=== PATIENT | female | born 1980 | race Caucasian/White ===

== ENCOUNTER → 2017-01-08 | Outpatient (CLI) | payer BC ==
[~2017-01-08] MED LIST: BIOF500T PO; BUSP15TA70 PO; CEFU1TAB36 PO; FEXO1TAB46 PO; METH1TAB66 PO; MONT1TAB5 PO; OMEP20TA PO; ONDA4TAB7 SL; PRAM0.5T10 PO; RANI300T PO; RIZA10TA19 PO; VENL150T33 PO; [UNRECOGNIZED DRUG - OTHER] PO
[2017-01-08 12:35] LABS: ALT/SGPT 35 U/L (12-78); BLOOD UREA NITROGEN 12 mg/dl (7-18); BUN/CREATININE RATIO 12.9 (10-20); CARBON DIOXIDE 24 mmol/L (21-32); CHLORIDE 110 mmol/L (98-107); CHOLESTEROL 149 mg/dl (0-200); CREATININE 0.91 mg/dl (0.60-1.20); GLUCOSE 94 mg/dl (70-99); SODIUM 141 mmol/L (136-145); TRIGLYCERIDES 139 mg/dl (0-150); VERY LOW DENSITY LIPOPROT CALC 28 mg/dl
[2017-01-08 12:38] LABS: ALB/GLOB RATIO 1.3 (0.9-2); ALKALINE PHOSPHATASE 77 U/L (45-117); AST/SGOT 23 U/L (15-37); CHOLESTEROL/HDL RATIO 3.2; HDL CHOLESTEROL 46 mg/dl; LDL CHOLESTEROL CALCULATED 75 mg/dl
[2017-01-08 12:39] LABS: CALCIUM 9.9 mg/dl (8.5-10.1)
== END | disposition home or self-care (01) ==
LOC: C.LABPVFM 09:28
PROVIDERS: ATTEND Nurse Practitioner
DX: G43.909 Migraine, unspecified, not intractable, without status migrainosus (principal); E55.9 Vitamin D deficiency, unspecified; Z13.220 Encounter for screening for lipoid disorders

== ENCOUNTER 2017-09-04 12:06 | Emergency (ER) | payer BC ==
[~2017-09-04] VITALS: Ht 160 cm; Wt 116.6 kg
[2017-09-04 12:08] VITALS: TEMP 36.7; Ht 160 cm; Wt 116.6 kg
[2017-09-04] MEDS ORDERED: KETOROLAC TROMETHAMINE 30 MG/ML VIAL IV STA (12:20)
[2017-09-04] MEDS ORDERED: SODIUM CHLORIDE 0.9% 1000ML 1,000 ML IV STA (12:20)
[2017-09-04] MEDS ORDERED: ONDANSETRON INJ 2 MG/ML 2 ML VIAL IV STA (12:20)
[2017-09-04] MEDS ORDERED: OPTIRAY 320 IV PRN (12:30)
[2017-09-04 12:58] LABS: BASO % 0.2 %; BASO ABS # 0.02 K/uL (0-0.2); COMPLETE YES; EOS % 0.3 %; HEMATOCRIT 40.4 % (37-47); IG% 0.2 %; LYMPH % 14.6 %; LYMPH ABS # 1.42 K/uL (1.2-3.4); MEAN CELL VOLUME 89.2 fL (80-100); MEAN CORPUSCULAR HEMOGLOBIN 31.1 pg (25-34); MEAN CORPUSCULAR HGB CONC 34.9 g/dl (32-36); MEAN PLATELET VOLUME 9.3 fL (7.4-10.4); MONO % 6.3 %; NEUT % 78.4 %; PLATELET COUNT 294 K/uL (130-400); RED BLOOD COUNT 4.53 M/uL (4.2-5.4); WHITE BLOOD COUNT 9.75 K/uL (4.8-10.8)
[2017-09-04 13:00] LABS: URINE APPEARANCE CLEAR (CLEAR); URINE BILIRUBIN NEG (NEG); URINE COLOR YELLOW; URINE NITRITE NEG (NEG); URINE PH 7.5 (4.5-7.5); URINE SPECIFIC GRAVITY 1.007 (1.000-1.030); UROBILINOGEN NEG (NEG); ZZUR CULT IF INDIC CLEAN CATCH NO
[2017-09-04 13:01] LABS: MANUAL MICROSCOPIC REQUIRED? NO; REVIEW REQ? NO
[2017-09-04 13:18] LABS: ALT/SGPT 22 U/L (12-78); AST/SGOT 17 U/L (15-37); BLOOD UREA NITROGEN 7 mg/dl (7-18); BUN/CREATININE RATIO 9.5 (10-20); CALCIUM 9.3 mg/dl (8.5-10.1); CARBON DIOXIDE 25 mmol/L (21-32); CHLORIDE 108 mmol/L (98-107); CREATININE 0.74 mg/dl (0.60-1.20); GLUCOSE 93 mg/dl (70-99); POTASSIUM 3.6 mmol/L (3.5-5.1); SODIUM 140 mmol/L (136-145)
[2017-09-04 13:20] LABS: ALKALINE PHOSPHATASE 72 U/L (45-117)
--- NOTE | 2017-09-04 14:10 | DIAGNOSTIC IMAGING REPORT ---
ABDOMEN AND PELVIS CT WITH IV CONTRAST CT DOSE: 1484.65 mGy.cm HISTORY: Left-sided abdominal pain. TECHNIQUE: Multiaxial CT images of the abdomen and pelvis were performed following the use of intravenous contrast. A dose lowering technique was utilized adhering to the principles of ALARA. COMPARISON STUDY: None. FINDINGS: The lung bases are clear. The liver, spleen, gallbladder, pancreas, kidneys, and adrenal glands are within normal limits. No bowel wall thickening or obstruction. The pelvic organs are unremarkable. No suspicious lytic or blastic osseous lesions. Normal appendix. The intrauterine device is in good position. Incidental note is made of a left retroaortic renal vein. IMPRESSION: 1. No bowel wall thickening or obstruction. 2. Normal appendix. 3. No renal stones. No hydronephrosis. Electronically signed by: Sreedhar Gutierrez M.D. 09/04/2017 2:09 PM Dictated Date/Time: 09/04/2017 1:59 PM
[2017-09-04 14:47] VITALS: BP 119/71; PULSE 83; O2SAT 96
--- NOTE | 2017-09-04 17:10 | EMERGENCY ROOM VISIT NOTE ---
History Report prepared by Leopoldo: Luke Marti Under the Supervision of: Dr. Kraig Asher D.O. First contact with patient: 12:15 Chief Complaint: OTHER COMPLAINT Stated Complaint: PAIN IN RIFHT SIDE/NAUSEA/LEG PAIN History of Present Illness The patient is a 37 year old female who presents to the Emergency Room with complaints of constant pain on left abdominal pain beginning a few weeks ago. Her pain was initially intermittent, but became constant one week ago. Patient adds both legs were achy last night. She denies any numbness or weakness. Patient says she has associated symptoms of nausea for 3 weeks which started off intermittent but has been constant for the last week similarly to her pain. Patient admits throwing up last night as well as 4 days ago. She admits to a history of headaches. In addition, she has had a severe headache that began recently. She denies symptoms of shortness of breath, chest pain, and painful urination. Patient had an X-Ray done today at her doctor's office this morning that showed she was not constipated. Patient is currently on antibiotics for a sinus infection. Patient denies any previous abdominal surgeries. Patient has an IUD in place. No vaginal bleeding or vaginal discharge. Source of History: patient Onset: a few weeks ago Position: abdomen (left) Timing: constant Associated Symptoms: + headache, + nausea, + urinary symptoms (Painful urination), No chest pain, No SOB Note: Patient denies being constipated. She also complains of leg aching. Review of Systems See HPI for pertinent positives & negatives. A total of 10 systems reviewed and were otherwise negative. Past Medical & Surgical Medical Problems: (1) Depression (2) Gastroesophageal reflux disease (3) Migraines (4) Orthopedic surgery (5) Sinus surgery Family History Diabetes mellitus Hypertension Social History Smoking Status: Never Smoker Alcohol Use: none Marital Status: Occupation Status: employed Current/Historical Medications Scheduled Montelukast Sodium (Montelukast Sodium), 10 MG PO HS Omeprazole (Omeprazole), 20 MG PO BID Pramipexole Dihydrochloride (Pramipexole Dihydrochlori), 0.5 MG PO HS Ranitidine Hcl (Zantac), 300 MG PO HS Rizatriptan Benzoate (Maxalt-Entertainment Agent), 10 MG PO PRN/UD Venlafaxine Hcl (Venlafaxine Hcl Er), 150 MG PO QAM Allergies Coded Allergies: No Known Allergies (Verified , 07/07/11) Physical Exam Vital Signs Date Time Temp Pulse Resp B/P (MAP) Pulse Ox O2 Delivery O2 Flow Rate FiO2 09/04/17 14:47 83 18 119/71 96 Room Air 09/04/17 13:51 90 19 122/81 97 Room Air 09/04/17 12:08 36.7 104 18 131/87 95 Room Air Physical Exam GENERAL: Sitting up in bed, alert, well appearing, well nourished, no distress, non-toxic EYE EXAM: normal conjunctiva. OROPHARYNX: no exudate, no erythema, lips, buccal mucosa, and tongue normal and mucous membranes are moist NECK: supple, no nuchal rigidity, no adenopathy, non-tender LUNGS: Clear to auscultation. Normal chest wall mechanics HEART: no murmurs, S1 normal and S2 normal ABDOMEN: abdomen soft, minimal tenderness in left flank, normo-active bowel sounds, no masses, no rebound or guarding. BACK: Back is symmetrical on inspection and there is no deformity, no midline tenderness, no CVA tenderness. SKIN: no rashes and no bruising UPPER EXTREMITIES: upper extremities are grossly normal. LOWER EXTREMITIES: No pitting edema. NEURO EXAM: Normal sensorium, cranial nerves II-XII grossly intact, normal speech, no gross weakness of arms. Able to stand and walk on heels and toes. Gross sensation intact. No weakness in hip, knees, or ankles. Medical Decision & Procedures ER Provider Diagnostic Interpretation: Radiology results as stated below per my review and the radiologist's interpretation: ABDOMEN AND PELVIS CT WITH IV CONTRAST CT DOSE: 1484.65 mGy.cm HISTORY: Left-sided abdominal pain. TECHNIQUE: Multiaxial CT images of the abdomen and pelvis were performed following the use of intravenous contrast. A dose lowering technique was utilized adhering to the principles of ALARA. COMPARISON STUDY: None. FINDINGS: The lung bases are clear. The liver, spleen, gallbladder, pancreas, kidneys, and adrenal glands are within normal limits. No bowel wall thickening or obstruction. The pelvic organs are unremarkable. No suspicious lytic or blastic osseous lesions. Normal appendix. The intrauterine device is in good position. Incidental note is made of a left retroaortic renal vein. IMPRESSION: 1. No bowel wall thickening or obstruction. 2. Normal appendix. 3. No renal stones. No hydronephrosis. Electronically signed by: Sreedhar Gutierrez M.D. 09/04/2017 2:09 PM Laboratory Results 09/04/17 12:30 Red Blood Count 4.53, Mean Corpuscular Volume 89.2, Mean Corpuscular Hemoglobin 31.1, Mean Corpuscular Hemoglobin Concent 34.9, Mean Platelet Volume 9.3, Neutrophils (%) (Auto) 78.4, Lymphocytes (%) (Auto) 14.6, Monocytes (%) (Auto) 6.3, Eosinophils (%) (Auto) 0.3, Basophils (%) (Auto) 0.2, Neutrophils # (Auto) 7.65, Lymphocytes # (Auto) 1.42, Monocytes # (Auto) 0.61, Eosinophils # (Auto) 0.03, Basophils # (Auto) 0.02 09/04/17 12:30 Test 09/04/17 12:25 09/04/17 12:30 Urine Color YELLOW Urine Appearance CLEAR (CLEAR) Urine pH 7.5 (4.5-7.5) Urine Specific [place] 1.007 (1.000-1.030) Urine Protein NEG (NEG) Urine Glucose (UA) NEG (NEG) Urine Ketones NEG (NEG) Urine Occult Blood NEG (NEG) Urine Nitrite NEG (NEG) Urine Bilirubin NEG (NEG) Urine Urobilinogen NEG (NEG) Urine Leukocyte Esterase NEG (NEG) Urine WBC (Auto) 0 /hpf (0-5) Urine RBC (Auto) 0-4 /hpf (0-4) Urine Hyaline Casts (Auto) 1-5 /lpf (0-5) Urine Epithelial Cells (Auto) 10-20 /lpf (0-5) Urine Bacteria (Auto) NEG (NEG) Urine Test NEG (NEG) White Blood Count 9.75 K/uL (4.8-10.8) Red Blood Count 4.53 M/uL (4.2-5.4) Hemoglobin 14.1 g/dL (12.0-16.0) Hematocrit 40.4 % (37-47) Mean Corpuscular Volume 89.2 fL (80-100) Mean Corpuscular Hemoglobin 31.1 pg (25-34) Mean Corpuscular Hemoglobin Concent 34.9 g/dl (32-36) Platelet Count 294 K/uL (130-400) Mean Platelet Volume 9.3 fL (7.4-10.4) Neutrophils (%) (Auto) 78.4 % Lymphocytes (%) (Auto) 14.6 % Monocytes (%) (Auto) 6.3 % Eosinophils (%) (Auto) 0.3 % Basophils (%) (Auto) 0.2 % Neutrophils # (Auto) 7.65 K/uL (1.4-6.5) Lymphocytes # (Auto) 1.42 K/uL (1.2-3.4) Monocytes # (Auto) 0.61 K/uL (0.11-0.59) Eosinophils # (Auto) 0.03 K/uL (0-0.5) Basophils # (Auto) 0.02 K/uL (0-0.2) RDW Standard Deviation 42.3 fL (36.4-46.3) RDW Coefficient of Variation 13.1 % (11.5-14.5) Immature Granulocyte % (Auto) 0.2 % Immature Granulocyte # (Auto) 0.02 K/uL (0.00-0.02) Anion Gap 6.0 mmol/L (3-11) Est Creatinine Clear Calc Drug Dose 125.8 ml/min Estimated GFR () 118.3 Estimated GFR (Non- 102.1 BUN/Creatinine Ratio 9.5 (10-20) Calcium Level 9.3 mg/dl (8.5-10.1) Total Bilirubin 0.5 mg/dl (0.2-1) Direct Bilirubin < 0.1 mg/dl (0-0.2) Aspartate Amino Transf (AST/SGOT) 17 U/L (15-37) Alanine Aminotransferase (ALT/SGPT) 22 U/L (12-78) Alkaline Phosphatase 72 U/L (45-117) Total Protein 7.5 gm/dl (6.4-8.2) Albumin 4.2 gm/dl (3.4-5.0) Lipase 108 U/L (73-393) Laboratory results per my review. Medications Administered Medications (Trade) Dose Ordered Sig/Kvng Route Start Time Stop Time Status Last Admin Dose Admin Sodium Chloride 1,000 ml @ 999 mls/hr Q1H1M STAT IV 09/04/17 12:20 09/04/17 13:20 DC 09/04/17 12:34 999 MLS/HR Ondansetron HCl (Zofran Inj) 4 mg NOW STAT IV 09/04/17 12:20 09/04/17 12:22 DC 09/04/17 12:38 4 MG Ketorolac Tromethamine (Toradol Inj) 30 mg NOW STAT IV 09/04/17 12:20 09/04/17 12:22 DC 09/04/17 12:38 30 MG ED Course ED COURSE: Vital signs were reviewed and showed tachycardia The patients medical record was reviewed The above diagnostic studies were performed and reviewed. ED treatments and interventions as stated above. 1215: The patient was evaluated in room A10. A complete history and physical examination was performed. 1220: Toradol Inj 30mg IV, Zofran Inj 4mg IV, Sodium Chloride 1000 ml @ 999 mls/ hr IV 1230: Ioversol 125ml IV 1418: Upon reevaluation, the patient is resting comfortably.I discussed my findings with the patient and she understands and agrees with the treatment plan. Based on the patients age, coexisting illnesses, exam and lab findings the decision to treat as an outpatient was made. The patient remained stable while under my care. The patient appeared well at the time of discharge. Medical Decision Differential diagnoses includes but is not limited to gastritis, peptic ulcer disease, GERD, gallbladder disease, pancreatitis, small bowel obstruction, acute coronary syndrome, pericarditis, ischemic bowel, irritable bowel disease, irritable bowel syndrome, appendicitis, diverticulitis, malignancy, hernia, urinary tract infection, torsion, [/ectopic (if female)], perforation, trauma, infectious. Patient is a 37-year-old female who presents to ER for left-sided abdominal pain which has been off and on for the past 3 months associated with nausea. CBC all BMP, LFTs, bilirubin lipase is unremarkable. UA was negative. Beta hCG was negative. Patient was updated in regards to findings. Patient completely benign exam. CT abdomen and pelvis is negative. Patient was feeling significantly better. She was given fluids, Zofran and Toradol. Patient was updated bedside. She just discharged follow-up with her PCP. Pelvic was not performed as she has no vaginal complaints. Discussed with Pt concerning signs and symptoms to watch out for. Pt was instructed to follow up with their PCP and discussed with the patient their option to return to the ED at anytime for persistent or worsening symptoms. The appropriate anticipatory guidance and out-patient management, including indications for return to the emergency department, were explained at length to the patient and understood. Medication Reconcilliation Current Medication List: was personally reviewed by me Blood Pressure Screening Patient's blood pressure: Normal blood pressure Blood pressure disposition: Did not require urgent referral Impression Primary Impression: Abdominal pain Scribe Attestation The scribe's documentation has been prepared under my direction and personally reviewed by me in its entirety. I confirm that the note above accurately reflects all work, treatment, procedures, and medical decision making performed by me. Departure Information Dispostion Home / Self-Care Referrals Meka Malin C.R.N.P (PCP) Forms HOME CARE DOCUMENTATION FORM, IMPORTANT VISIT INFORMATION, WORK / SCHOOL INSTRUCTIONS Patient Instructions ED Flank Pain Uncertain Cause, My [facility] Additional Instructions Please follow up with your primary care doctor or if you are a student, [facility] with in the next 24 hours. Any worsening of your symptoms, please return to the ED immediately. This includes any fevers greater than 100.4, worsening pain, chest pain, shortness breath, persistent nausea, vomiting, unable to eat or drink, or any other concerning signs or symptoms from your standpoint. You were given medications during this visit that will inhibit your ability to drive, operate machinery and work. Please do NOT drive, operate machinery, drink alcohol or work for the next 12hrs. Problem Qualifiers Primary Impression: Abdominal pain Abdominal location: lower abdomen, unspecified Qualified Codes: R10.30 - Lower abdominal pain, unspecified
== END 2017-09-04 14:49 | disposition home or self-care (01) ==
LOC: C.EDB 12:07 → C.EDA 14:49
DX: R10.30 Lower abdominal pain, unspecified (principal); F32.9 Major depressive disorder, single episode, unspecified; K21.9 Gastro-esophageal reflux disease without esophagitis; G43.909 Migraine, unspecified, not intractable, without status migrainosus; Z83.3 Family history of diabetes mellitus; Z82.49 Family history of ischemic heart disease and other diseases of the circulatory system; Z79.899 Other long term (current) drug therapy

== ENCOUNTER → 2017-09-04 | Outpatient (CLI) | payer BC ==
--- NOTE | 2017-09-04 11:12 | DIAGNOSTIC IMAGING REPORT ---
KUB CLINICAL HISTORY: Left lower quadrant abdominal pain COMPARISON STUDY: No previous studies for comparison. FINDINGS: No IUD is visualized in the pelvis. There is no pathologic bowel dilatation. No definite urinary tract calculi are visualized. IMPRESSION: 1. No evidence of pathologic bowel dilatation 2. Indwelling IUD Electronically signed by: Isidro Damon M.D. 09/04/2017 11:10 AM Dictated Date/Time: 09/04/2017 11:10 AM
== END | disposition home or self-care (01) ==
LOC: C.RADPV 10:55
PROVIDERS: ATTEND Family Medicine
DX: R10.32 Left lower quadrant pain (principal); Z97.5 Presence of (intrauterine) contraceptive device

== ENCOUNTER → 2017-11-22 | Outpatient (CLI) | payer OTHER ==
[~2017-11-22] MED LIST changes: -BIOF500T PO; -BUSP15TA70 PO; -CEFU1TAB36 PO; -FEXO1TAB46 PO; -METH1TAB66 PO; -ONDA4TAB7 SL; -PRAM0.5T10 PO; +PRAM0.5T13 PO; -[UNRECOGNIZED DRUG - OTHER] PO
== END | disposition home or self-care (01) ==
LOC: C.LAB1850 16:27
PROVIDERS: ATTEND Nurse Practitioner
DX: G47.33 Obstructive sleep apnea (adult) (pediatric) (principal)

== ENCOUNTER → 2017-12-21 | Outpatient (CLI) | payer OTHER ==
[2017-12-21 10:53] LABS: BLOOD UREA NITROGEN 12 mg/dl (7-18); CALCIUM 8.8 mg/dl (8.5-10.1); CARBON DIOXIDE 24 mmol/L (21-32); CHOLESTEROL 135 mg/dl (0-200); GLUCOSE 93 mg/dl (70-99); POTASSIUM 3.7 mmol/L (3.5-5.1); SODIUM 140 mmol/L (136-145)
[2017-12-21 10:56] LABS: LDL CHOLESTEROL CALCULATED 77 mg/dl
== END | disposition home or self-care (01) ==
LOC: C.LAB1850 09:08
PROVIDERS: ATTEND Nurse Practitioner
DX: F32.9 Major depressive disorder, single episode, unspecified (principal); G25.81 Restless legs syndrome; G43.009 Migraine without aura, not intractable, without status migrainosus; Z13.220 Encounter for screening for lipoid disorders; E55.9 Vitamin D deficiency, unspecified

== ENCOUNTER 2020-10-17 08:54 | Inpatient (IN) ==
--- NOTE | 2020-10-03 14:43 | Anesthesiology Consultation ---
Date of Service October 03, 2020 Assessment & Plan (1) Encounter for pre-operative examination: Chart Review Chart Review: Acceptable Risk for Surgery (pending preop Covid testing ) and Patient NOT seen in Pre Admission Testing Pt initially scheduled for surgery 09/12/20 and seen in PAT 08/29/20- patient was rescheduled due to bed availability/staffing issues from Covid surge - Check test AM DOS Per nursing assessment 10/03/20, patient denies any recent travel. No known Covid positive contacts or Covid related symptoms. [place] [facility] [place] will await results. Seen by PCP 08/30/20= seen for preop visit for upcoming back surgery. Vitals and exam unremarkable. Preop testing reviewed and all WNL. " Patient is med ically optimized ("cleared") for the intended procedure. History Surgery Operation Date: 10/19/20 13:05 Proposed Procedures p L2-L3 Decompression and Fusion, Spinal Cord Monitoring - Se An DO Height/Weight Height: 5 ft 3 in Weight: 127.006 kg Allergies Allergy/AdvReac Type Severity Reaction Status Date / Time No Known Allergies Allergy Unknown Verified 10/03/20 14:18 Medications Home Medications Medication Instructions Recorded Confirmed Last Taken escitalopram oxalate 20 mg PO QPM 01/13/19 10/03/20 Unknown sumatriptan succinate 100 mg PO UD PRN 01/13/19 10/03/20 Unknown valacyclovir 2 tabs PO Q12H PRN 01/13/19 10/03/20 Unknown cyclobenzaprine 10 mg tablet 10 mg PO DAILY PRN #90 tab 03/14/20 10/03/20 Unknown bupropion HCl 1 tab PO HS 08/29/20 10/03/20 Unknown metoclopramide HCl 10 mg PO Q6H PRN 08/29/20 10/03/20 Unknown omeprazole 20 mg capsule,delayed 20 mg PO QPM #90 cap 08/30/20 10/03/20 Unknown release pramipexole 0.5 mg tablet 0.5 mg PO HS #90 tab 08/30/20 10/03/20 Unknown trazodone 100 mg tablet 100 mg PO HS #90 tab 08/30/20 10/03/20 Unknown Past Medical History Medical History (Updated 10/03/20 @ 14:49 by Janette Lea PA-C) Anxiety Depression GERD (gastroesophageal reflux disease) Well controlled and stable Hypothyroidism No meds- pt was on levothyroxine 25mcg but was off for several months and when TSH rechecked- was WNL. Migraines Usually headache daily FLASH (obstructive sleep apnea) "Mild" - tried CPAP to see if headaches would be relieved- no change- no longer uses CPAP Osteoarthritis Restless leg syndrome Past Family History Family History Father Diabetes Other No family history of adverse response to anesthesia Past Surgical History Surgical History History of arthroscopy of left knee History of carpal tunnel release of both wrists History of sinus surgery x 2 Social History Smoking Status: Never smoker Do You Dip or Chew Tobacco: No Hx Alcohol Use: Yes Alcohol type: beer alcohol intake frequency: holidays/special occasions only Hx Substance Use: No substance use type: does not use Testing Laboratory Results Laboratory Tests 08/29/20 08/29/20 08/29/20 11:19 11:19 11:19 WBC 9.87 Hgb 13.4 Hct 39.7 Plt Count 337 PT 10.1 INR 1.0 APTT 28.5 Sodium 140 Potassium 4.4 Chloride 107 Carbon Dioxide 28 BUN 14 Creatinine 0.71 Glucose 85 08/29/20= UA: 1+ leukocyte esterase, >30 epithel cells, negative for bacteria T&S: O positive, antibody negative Electrocardiogram Date: 08/29/20 Findings: + NSR @ (91) Normal EKG. Chest X-Ray Date: 08/29/20 Findings: + NAD
[~2020-10-17 08:54] MED LIST changes: +ACETAMINOPHEN 500 MG TAB PO SCH; +CeleBREX 200 MG CAP PO SCH; +GABAPENTIN 900 MG DOSE PO SCH; +LR 15ML/HR IV SCH; -MONT1TAB5 PO; -OMEP20TA PO; -PRAM0.5T13 PO; -RANI300T PO; -RIZA10TA19 PO; -VENL150T33 PO
[2020-10-17] MEDS ORDERED: ONDANSETRON INJ 2 MG/ML 2 ML VIAL IV PRN ×2 (10:04→14:50)
[2020-10-17] MEDS ORDERED: HYDROmorphone INJ 2 MG/ML SYR/VIAL IV PRN (10:04)
[2020-10-17] MEDS ORDERED: ATROPINE SULFATE 0.1 MG/ML 10ML SYR IV PRN (10:04)
[2020-10-17] MEDS ORDERED: ePHEDrine sulfate 50 MG/ML AMP IV PRN (10:04)
[2020-10-17] MEDS ORDERED: PROMETHAZINE HCL 12.5 MG in SODIUM CHLORIDE 0.9% 50 ML IV PRN ×2 (10:04→14:50)
[2020-10-17] MEDS ORDERED: ONDANSETRON INJ 2 MG/ML 2 ML VIAL ONE (10:17)
[2020-10-17] MEDS ORDERED: LIDOCAINE HCL 2% 2 ML VIAL/AMP(20MG/ML) INFIL ONE (10:17)
[2020-10-17] MEDS ORDERED: DEXAMETHASONE SOD INJ 4 MG/ML VIAL ONE (10:17)
[2020-10-17] MEDS ORDERED: PROPOFOL IV EMULSION 10 MG/ML 20 ML VIAL IV ONE (10:17)
[2020-10-17] MEDS ORDERED: fentaNYL citrate 100 MCG/2 ML VIAL ONE ×2 (10:18→12:13)
[2020-10-17] MEDS ORDERED: MIDAZOLAM HCL 1 MG/ML 2ML VIAL ONE (10:18)
--- NOTE | 2020-10-17 10:59 | History & Physical Bridge Note ---
Date of Service October 17, 2020 History & Physical Bridge Note I have examined the patient, reviewed the History & Physical and in the interval since the performance of the History & Physical I have noted the following changes of clinical significance: no changes noted
--- NOTE | 2020-10-17 11:00 | History & Physical Report ---
Date of Service October 17, 2020 Assessment & Plan (1) Lumbar disc herniation with radiculopathy: Admission and Anticipated Discharge Date Admission Date: L2-L3 decompression fusion History of Present Illness Chief Complaint: Back and left leg pain Primary Care Provider: ASA Floyd This is a 40-year-old female presents with current persistent left leg pain. After failing course of nonoperative care she is here for surgical invention. Allergies Allergy/AdvReac Type Severity Reaction Status Date / Time No Known Allergies Allergy Unknown Verified 10/03/20 14:18 Home Medications Medication Instructions Recorded Confirmed Type escitalopram oxalate 20 mg PO QPM 01/13/19 10/17/20 History sumatriptan succinate 100 mg PO UD PRN 01/13/19 10/17/20 History valacyclovir 2 tabs PO Q12H PRN 01/13/19 10/17/20 History cyclobenzaprine 10 mg tablet 10 mg PO DAILY PRN #90 tab 03/14/20 10/17/20 Rx bupropion HCl 1 tab PO HS 08/29/20 10/17/20 History metoclopramide HCl 10 mg PO Q6H PRN 08/29/20 10/17/20 History omeprazole 20 mg capsule,delayed 20 mg PO QPM #90 cap 08/30/20 10/17/20 Rx release pramipexole 0.5 mg tablet 0.5 mg PO HS #90 tab 08/30/20 10/17/20 Rx trazodone 100 mg tablet 100 mg PO HS #90 tab 08/30/20 10/17/20 Rx Past Med/Surg History Medical History (Updated 10/17/20 @ 11:00 by Se An DO) Anxiety Depression GERD (gastroesophageal reflux disease) Well controlled and stable Hypothyroidism No meds- pt was on levothyroxine 25mcg but was off for several months and when TSH rechecked- was WNL. Migraines Usually headache daily FLAHS (obstructive sleep apnea) "Mild" - tried CPAP to see if headaches would be relieved- no change- no longer uses CPAP Osteoarthritis Restless leg syndrome Surgical History History of arthroscopy of left knee History of carpal tunnel release of both wrists History of sinus surgery x 2 Family History Father Diabetes Other No family history of adverse response to anesthesia Social History Smoking Status: Never smoker Second Hand Exposure: Yes (dad smokes); Do You Dip or Chew Tobacco: No; Tobacco Cessation Education Requested by Patient: No Hx Alcohol Use: Yes Alcohol type: beer Hx Substance Use: No Preferred Language: Wolof Communication Ability: Effective 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
[2020-10-17] MEDS ORDERED: BUPIVACAINE/EPINEPHRINE 0.5% MPF 1:200,000 30 ML VIAL ONE (11:05)
[2020-10-17] MEDS ORDERED: BACITRACIN INJ 50,000 UNIT VIAL ONE (11:06)
[2020-10-17] MEDS ORDERED: NEOSTIGMINE METHYLSULFATE 1 MG/ML 10ML VIAL ONE ×2 (13:04→13:10)
[2020-10-17] MEDS ORDERED: GLYCOPYRROLATE 0.2 MG/ML VIAL ONE ×2 (13:04→13:10)
[2020-10-17] MEDS ORDERED: FLOSEAL HEMOSTATIC MATRIX 10ML TOP ONE (13:05)
[2020-10-17] MEDS ORDERED: ROCURONIUM BROMIDE 10 MG/ML 5 ML VIAL IV ONE (13:09)
--- NOTE | 2020-10-17 13:14 | Operative Report ---
Post Operative Report Pre & Post Diagnosis Operation Date: 10/17/20 10:25 Pre-Op Diagnosis: Intervetebral disc disorders with radiculopathy Morbid obesity Post-Op Diagnosis: Intervetebral disc disorders with radiculopathy Morbid obesity I identified the patient and participated in the time-out.: Yes Procedure Operation Date: 10/17/20 10:25 Actual Procedures #1 lumbar decompression with bilateral medial facetectomies and foraminotomies L2-L3. #2 posterior spinal fusion L2-L3. #3 placed posterior instrumentation L2-L3. #4 interbody fusion L2-L3. #5 placement peek cage 13 x 26 mm at L2-L3. #6 placement of locally harvested morselized autograft in the posterior gutters. #7 placement infuse collagen sponge, master graft in the posterior gutters and osteopenic body space. Surgeon Se An, Operative Supervisor Rebecca Atkinson Estimated Blood Loss 100 Findings See Below Patient is 5 foot 3 inches tall weighing over 140 kg with a BMI in excess of 54. The patient's body habitus did add significant technical difficulty requiring her deepest retractors and longus instruments in order to perform her procedure. This had at least 50% increase to the operative time. Specimens None Indications This is a 40-year-old female presents with above-mentioned diagnosis after failing course of nonoperative care she is here for the above-mentioned procedure. Description of Procedure Patient was met with identified informed consent obtained. Patient was then taken to the operative suite underwent an patient placed in the prone position on the Lalo table atop the Derrick frame. All bony prominences well-padded eyes inspected to ensure no external pressure placed upon them. This point the lumbar spine was prepped and draped in the normal sterile fashion. Sharp dissection with the assistance of Bovie cautery performed down to and exposing the lamina and transverse processes of L2 and L3. From caudal cephalad fashion complete laminectomy of L2 was performed including bilateral medial facetectomies and foraminotomies as well as addressing far lateral disc condition on the left. After complete decompression pedicle screws were placed in L2-L3 bilaterally with assistance of fluoroscopy and the appropriately sized evan placed. By way of a transforaminal approach on the left complete discectomy was performed endplates curetted to subcortical bleeding bone and a 13 x 26 mm peek cage filled with osteobone graft tapped in position. The rods then locked into final position bilaterally. The transverse processes of L2 and L3 burred to subcortical bleeding bone. Infuse collagen sponge master graft local autograft was placed in the posterior lateral gutters. 15 round SHAWN drain inserted. The incision was then closed with 1 Vicryl in the fascia 2-0 Vicryl subcutaneously and 4 Monocryl for final skin closure. Steri-Strip sterile dress ings placed. Patient will continue to PACU stable condition. Please note spinal cord monitoring utilized at the procedure no changes noted. Lastly Rebecca Atkinson was present at the entire procedure and all the patient positioning complex portions of the surgery and final skin closure. I attest to the content of the Intraoperative Record and any orders documented therein. Any exceptions are noted below.
--- NOTE | 2020-10-17 13:20 | Fluoroscopy Report ---
FL lumbar spine 2-3V HISTORY: 40 years-old Female L2-L3 DECOMPRESSION/FUSION chronic low back pain COMPARISON: MRI lumbar spine 05/25/2020 TECHNIQUE: 2 spot fluoroscopic images of the lumbar spine were obtained using 21.9 seconds fluoroscop y time FINDINGS: Prior laminectomy with discectomy, posterior interbody evan and screw fusion at what is labeled the L2 -L3 level. The hardware appears intact. Alignment is satisfactory without acute fracture or unexpecte d opaque foreign body. Study is limited secondary to magnification and penetration. IMPRESSION: Fluoroscopic assistance as above. ACT 112: Negative or not required by law. The above report was generated using voice recognition software. It may contain grammatical, syntax o r spelling errors. Electronically signed by: Jhonathan Castro M.D. 10/17/2020 1:19 PM
[2020-10-17] MEDS ORDERED: ALBUTEROL HFA INHALER 8.5 GM ONE (13:51)
[2020-10-17] MEDS: fentaNYL citrate 100 MCG/2 ML VIAL IV PRN ×2 (13:58→14:03)
--- NOTE | 2020-10-17 14:15 | Anesthesiology Progress Note ---
Date of Service October 17, 2020 Anesthesia Post Procedure Vital Signs Vital Signs: Temp Pulse Pulse Resp BP BP Pulse Ox 10/17/20 14:10 93 H 13 131/84 95 10/17/20 14:00 84 19 133/90 95 10/17/20 13:50 94 H 14 148/96 H 97 10/17/20 13:40 100 H 17 133/90 90 10/17/20 13:33 36.6 C 101 H 20 148/96 H 94 10/17/20 09:27 37 C 100 H 20 118/80 92 Pain Intensity Lower Back: Pain Intensity: 8 Transfer of Care Handoff Completed per policy Notes Mental Status: alert / awake / arousable and participated in evaluation Patient Amnestic to Procedure: Yes Nausea / Vomiting: adequately controlled Pain: adequately controlled Airway Patency, RR, SpO2: stable & adequate BP & HR: stable & adequate Hydration State: stable & adequate Anesthetic Complications: no major complications apparent and Pt Satisfied with anesthetic care
[2020-10-17] MEDS ORDERED: DO NOT ADMINISTER PNEUMOCOCCAL VACCINE PRN (14:50)
[2020-10-17] MEDS ORDERED: FAMOTIDINE 20 MG TAB PO PRN (14:50)
[2020-10-17] MEDS ORDERED: ONDANSETRON 4 MG OD TAB PO PRN (14:50)
[2020-10-17] MEDS ORDERED: LORazepam 0.5 MG TAB PO PRN (14:50)
[2020-10-17] MEDS ORDERED: hydrOXYzine HCl 25 MG TAB PO PRN (14:50)
[2020-10-17] MEDS ORDERED: NALOXONE HCL 0.4 MG/1 ML VIAL/CARP IV PRN (14:50)
[2020-10-17] MEDS ORDERED: HYDROmorphone INJ 1 MG/ML SYRINGE IV PRN (14:50)
[2020-10-17] MEDS ORDERED: traMADol HCL 50 MG TABLET PO PRN (14:50)
[2020-10-17] MEDS ORDERED: SOD PHOSPHATE/SOD BIPHOSPHATE ENEMA 132 ML BTL PR PRN (14:50)
[2020-10-17] MEDS ORDERED: HYDROmorphone INJ 0.5 MG/0.5 ML SYR IV PRN (14:50)
[2020-10-17] MEDS ORDERED: ACETAMINOPHEN 500 MG TAB PO PRN (14:50)
[2020-10-17] MEDS ORDERED: ACETAMINOPHEN 1,000 MG/100 ML VIAL IV PRN (14:50)
[2020-10-17] MEDS ORDERED: MAGNESIUM HYDROXIDE SUSP 30 ML UDC PO PRN (14:50)
[2020-10-17] MEDS ORDERED: LORazepam 0.5 MG/1 ML VIAL IV PRN (14:50)
[2020-10-17] MEDS ORDERED: DO NOT ADMINISTER FLU VACCINE PRN (14:50)
[2020-10-17] MEDS ORDERED: diphenhydrAMINE Capsule 25 MG CAP PO PRN (14:50)
[2020-10-17] MEDS ORDERED: ALUMINUM/MAGNESIUM SUSP 30 ML UDC PO PRN (14:50)
[2020-10-17] MEDS ORDERED: SUMAtriptan succinate 100 MG TAB PO PRN (14:50)
[2020-10-17] MEDS: LACTATED RINGER'S 1,000 ML IV SCH ×2 (15:04→21:15)
[2020-10-17] MEDS: KETOROLAC 30 MG/ML VIAL IV SCH ×2 (15:52→21:03)
[2020-10-17] MEDS: oxyCODONE HCL IR 5 MG TAB (IMMEDIATE RELEASE) PO PRN (19:32)
[2020-10-17] MEDS: PANTOprazole 40 MG TAB PO SCH (21:03)
[2020-10-17] MEDS: ESCITALOPRAM OXALATE 20 MG TAB PO SCH (21:03)
[2020-10-17] MEDS: WELLBUTRIN PO SCH (21:03)
[2020-10-17] MEDS: ceFAZolin 2000MG 2,000 MG/15 ML SYR IV SCH (21:03)
[2020-10-17] MEDS: traZODone HCL 100 MG TAB PO SCH (21:03)
[2020-10-17] MEDS: DOCUSATE SODIUM/SENNA 50/8.6MG TAB PO SCH (21:03)
[2020-10-17] MEDS: PRAMIPEXOLE DIHYDROCHLO 0.5 MG TAB PO SCH (21:03)
[2020-10-18] MEDS: KETOROLAC 30 MG/ML VIAL IV SCH ×2 (02:56→10:13)
[2020-10-18] MEDS: ceFAZolin 2000MG 2,000 MG/15 ML SYR IV SCH (02:57)
[2020-10-18] MEDS: POLYETHYLENE (MIRALAX) 17 GM PACK PO SCH ×4 (03:17→23:46)
[2020-10-18 05:51] LABS: Eosinophils # (auto) 0.01 K/uL (0-0.5); Eosinophils % (auto) 0.1 %; Hematocrit (blood only) 37.1 % (37-47); Hemoglobin 12.4 g/dL (12.0-16.0); Immature Granulocytes # (auto) 0.03 K/uL (0.00-0.02); Immature Granulocytes % (auto) 0.2 %; Lymphocytes # (auto) 1.45 K/uL (1.2-3.4); Lymphocytes % (auto) 9.9 %; Mean Corpuscular Hemoglobin 30.4 pg (25-34); Mean Corpuscular Hgb Conc 33.4 g/dL (32-36); Mean Corpuscular Volume 90.9 fL (80-100); Mean Platelet Volume 8.7 fL (7.4-10.4); Monocytes # (auto) 1.03 K/uL (0.11-0.59); Neutrophils # (auto) 12.14 K/uL (1.4-6.5); Neutrophils % (auto) 82.8 %; Platelet Count 318 K/uL (130-400); RDW Coefficient of Variation 13.1 % (11.5-14.5); RDW Standard Deviation 43.5 fL (36.4-46.3); Red Blood Count 4.08 M/uL (4.2-5.4); White Blood Count 14.66 K/uL (4.8-10.8)
[2020-10-18 06:16] LABS: BUN Creatinine Ratio 12.2 (10-20); Calcium 8.4 mg/dl (8.5-10.1); Creatinine Clr Calc Pharmacy 144.7 ml/min; Est GFR (African American) 123.9; Est GFR (Non-African American) 106.9; Potassium 4.1 mmol/L (3.5-5.1)
--- NOTE | 2020-10-18 10:17 | Orthopedic Progress Note ---
Date of Service October 18, 2020 Assessment & Plan (1) Lumbar disc herniation with radiculopathy: Admission and Anticipated Discharge Date Admission Date: October 17, 2020 This time continue physical therapy monitor SHAWN operatively discharge home the next few days. Subjective Patient's back pain is controlled leg symptoms markedly improved. Physical Exam Physical Exam: Patient is in the chair at the bedside. Is good strength testing. Appears comfortable. Results & Data ([facility]) Vital Signs (Past 12 Hours) Vital Signs Temp Pulse Resp BP BP Pulse Ox 10/18/20 07:32 36.8 C 99 H 16 127/77 94 10/18/20 06:33 89 10/18/20 04:00 36.7 C 94 H 18 113/78 98 10/17/20 23:05 36.6 C 110 H 20 107/66 96
[2020-10-18] MEDS: oxyCODONE HCL IR 5 MG TAB (IMMEDIATE RELEASE) PO PRN ×3 (13:59→23:46)
[2020-10-18] MEDS: METOCLOPRAMIDE HCL INJ 5 MG/ML 2 ML VIAL IV PRN ×2 (15:58→23:46)
[2020-10-18] MEDS ORDERED: POLYETHYLENE (MIRALAX) 17 GM PACK PO SCH (18:00)
[2020-10-18] MEDS: PRAMIPEXOLE DIHYDROCHLO 0.5 MG TAB PO SCH (20:40)
[2020-10-18] MEDS: WELLBUTRIN PO SCH (20:40)
[2020-10-18] MEDS: PANTOprazole 40 MG TAB PO SCH (20:40)
[2020-10-18] MEDS: traZODone HCL 100 MG TAB PO SCH (20:40)
[2020-10-18] MEDS: DOCUSATE SODIUM/SENNA 50/8.6MG TAB PO SCH (20:40)
[2020-10-18] MEDS: ESCITALOPRAM OXALATE 20 MG TAB PO SCH (20:40)
[2020-10-18] MEDS: CYCLOBENZAPRINE HCL 10 MG TAB PO PRN (21:37)
[2020-10-19] MEDS: POLYETHYLENE (MIRALAX) 17 GM PACK PO SCH ×2 (05:29→11:49)
[2020-10-19] MEDS: oxyCODONE HCL IR 5 MG TAB (IMMEDIATE RELEASE) PO PRN ×2 (05:55→11:53)
[2020-10-19] MEDS ORDERED: ACETAMINOPHEN 500 MG TAB PO SCH (06:00)
[2020-10-19] MEDS ORDERED: GABAPENTIN 900 MG DOSE PO SCH (06:00)
[2020-10-19] MEDS ORDERED: CeleBREX 200 MG CAP PO SCH (06:00)
[2020-10-19] MEDS ORDERED: LR 15ML/HR IV SCH (06:00)
[2020-10-19] MEDS: METOCLOPRAMIDE HCL INJ 5 MG/ML 2 ML VIAL IV PRN (07:56)
[2020-10-19] MEDS: CYCLOBENZAPRINE HCL 10 MG TAB PO PRN (08:01)
[2020-10-19] MEDS ORDERED: DEXAMETHASONE SOD PHOSPHATE 8 MG in SYRINGE 0 ML IV SCH (09:00)
--- NOTE | 2020-10-19 11:23 | Discharge Summary ---
Date of Service October 19, 2020 Admission HPI Per Admitting Provider This is a 40-year-old female presents with current persistent left leg pain. After failing course of nonoperative care she is here for surgical invention. Principal Diagnosis Lumbar disc condition with radiculopathy Discharge Data Allergies Allergy/AdvReac Type Severity Reaction Status Date / Time No Known Allergies Allergy Unknown Verified 10/03/20 14:18 Consultations 10/17/20 14:50 Consult Case Management - Discharge Planning Routine Procedures Performed Operation Date: 10/17/20 10:25 Actual Procedures p L2-L3 Decompression and Fusion, Spinal Cord Monitoring, Application of Bone Morphogenetic Protein and Allograft - Se An DO Ordered Studies 10/17/20 07:32 FL fluoroscopy <1hr Routine FL lumbar spine 2-3V Routine Hospital Course (1) Lumbar disc herniation with radiculopathy: Patient with lumbar decompression fusion tolerated well second orthopedic for postoperative. Postop day 1 she was up and ambulate progressive postop #2. Excellent strength testing. SHAWN drain decreasing appropriate. Subsequently discharged home. Discharge orders instructions from the chart for further view. Total Time Total Time Spent Total Time Spent (In Minutes): 20 minutes Discharge Plan Discharge Items Patient Disposition: Home - Self-Care Reason For Visit: Intervetebral disc disorders with radiculopathy Discharge Diagnosis: Lumbar disc herniation with radiculopathy Activity: As commented below Non-emergency contact: Primary Care Provider Call non-emergency contact if: you have any medication questions Follow-up/Referrals: Meka Malin CRNP [Primary Care Provider] - Diet: Regular Addtl Attending Provider Instructions: ACTIVITY RECOMMENDATIONS: SELF CARE INSTRUCTIONS AFTER THORACIC/LUMBAR FUSIONS 1. You may walk to your tolerance. It is good exercise for your legs and back. Expect some back and intermittent leg aches and pains. 2. You may perform "counter-top" level activities (make a sandwich, yuly with a project, etc.). 3. No bending or lifting of more than 10 pounds or back twisting of any nature (roll like a log when turning in bed). 4. You may ride in a car for 20-30 minutes at a time. No driving until after your first visit with your doctor. 5. Frequent changes of position and restricting sitting to 30 minutes at a time will help limit the amount of back spasms and stiffness you may experience. 6. You may discontinue the use of ambulatory aids (cane, crutches, etc.) once your strength and confidence allow. 7. You may photo finisher the shower and let water strike your incision when you arrive home at least once daily. Do not take a tub bath, sit in a hot tub or go into a swimming pool until after your first recheck in the office. SPECIAL CARE INSTRUCTIONS: VERY IMPORTANT TO READ AND REVIEW A. Your surgical incision has been closed with a cosmetic suture under the skin that will dissolve in about 6 weeks. In 14 days, you can use a pair of clean scissors and cut the suture that is left outside of the skin at the ends of your incision. 1. The small skin tapes can be removed 7 days after surgery if they have not fallen off by that point. 2. You may keep the wound open to air as much as possible to promote healing after post-op day number 5 unless told otherwise by your doctor. 3. If you think the wound looks like it is becoming infected (redness or worsening drainage) and/or you are experiencing fever, chill or worsening back pain and muscle spasms, contact the office so that we may evaluate you as soon as possible. B. Complications are uncommon, but please contact us if you have any signs or symptoms of: 1. wound infection (fever higher than 102.5 degrees F, redness, separation of wound, drainage, or increasing pain from the incision) 2. blood clots in legs (pain, swelling, redness and warmth in legs) 3. urinary tract infection (fever higher than 102.5 degrees F, burning upon urination or increased frequency of urination) 4. nerve problems (inability to walk on your toes or heels, numbness, loss of bowel or bladder control) 5. any other symptoms that concern you C. Please call the office at if you have any concerns or questions about your operation or recovery. D. No smoking! Smoking drastically decreases the chance of a solid fusion. E. Do not take any anti-inflammatory medications (Indocin, Advil, Motrin, Aspirin, Naprosyn, etc.) as these may inhibit the chance of a solid fusion. Tylenol is okay to take for pain. MANAGING PAIN AFTER SPINAL SURGERY 1. Narcotic medication is intended for short-term use and will be provided for surgical pain. Surgical pain usually lasts for a period of 4-6 weeks. Narcotic medication includes Percocet, Vicodin, Darvocet, Tylenol #3 or Lortab. 2. Longer-term pain is more appropriately treated with non-narcotic medication such as Tylenol ES. 3. Muscle spasm is not appropriately treated with narcotics. Muscle relaxers such as Soma, Flexeril or Skelaxin can be used along with Tylenol ES. 4. Remember that we all live with some "aches and pains". This is not unusual or uncommon after an injury or as we get older. a. Back pain is expected and may include muscle spasms for 4 to 6 weeks after surgery. The pain should gradually improve. If the pain worsens for no apparent reason, please contact the office. b. Intermittent leg pain may also be experienced and should not be concerned about unless it worsens for no apparent reason. If so, please contact the office. 5. We will provide appropriate medication within the normal guidelines of their prescribed use. We will also be very cautious and aware of potential abuse and extended duration of patients' medication needs. a. Pain medications are for your comfort and to assist with sleep and rest so that the tissue can heal. They are not provided in order to return to normal activity and should not be used through the day. To do so or worsening pain at night can result from ongoing tissue damage and development of tolerance to the prescribed medicine. 6. Please allow 2-3 days to process refills. Prescriptions will not be mailed but must be picked up at the office. FOLLOW UP VISIT: Keep your scheduled follow-up appointment. Any questions, please call the office at . Pending Studies at Discharge: No Stand-Alone Forms: [facility] C[facility] Medications and DC Order Prescriptions: New tramadol 50 mg tablet 50 mg PO Q6H PRN (Reason: pain, moderate) Qty: 30 RF: 0 oxycodone 5 mg tablet 5 mg PO Q6H PRN (Reason: pain, severe) Qty: 30 RF: 0 Continued omeprazole 20 mg capsule,delayed release(DR/EC) 20 mg PO QPM Qty: 90 RF: 0 pramipexole 0.5 mg tablet 0.5 mg PO HS Qty: 90 RF: 0 trazodone 100 mg tablet 100 mg PO HS Qty: 90 RF: 0 cyclobenzaprine 10 mg tablet 10 mg PO DAILY PRN (Reason: Muscle Spasm) Qty: 90 RF: 1 metoclopramide HCl 10 mg Tablet 10 mg PO Q6H PRN (Reason: Nausea) RF: 0 bupropion HCl 300 MG 1 tab PO HS RF: 0 valacyclovir 1 gram tablet 2 tabs PO Q12H PRN (Reason: Cold Sores) RF: 0 sumatriptan succinate 100 mg Tablet 100 mg PO UD PRN (Reason: Migraine Headache) RF: 0 escitalopram oxalate 20 mg tablet 20 mg PO QPM RF: 0 Discharge Orders: Discharge Order (Routine); Ordered 10/19/20 Ordered By: Se An Admission Data Admit Date/Time: 10/17/20 13:49 Attending Provider: Se An Admit Provider: Se An Primary Care Provider: Meka Malin
[2020-10-19] MEDS ORDERED: bisacodyL 10 MG SUPP PR PRN (13:15)
[2020-10-19] MEDS ORDERED: buPROPion XL 300 MG TABCR PO SCH (21:00)
== END 2020-10-19 13:22 | disposition home or self-care (01) | DRG 454 ==
LOC: ASU 08:54 → 3E 13:49

== ENCOUNTER 2021-03-15 17:59 | Observation (INO) ==
[2021-03-15] MEDS ORDERED: ONDANSETRON 4 MG OD TAB PO STA (18:19)
[2021-03-15] MEDS ORDERED: LORazepam 2 MG/ML VIAL (IM USE) IM STA (18:19)
[2021-03-15] MEDS ORDERED: ACETAMINOPHEN 325 MG TAB PO STA (19:35)
[2021-03-15] MEDS ORDERED: MAGNESIUM SULFATE / D5W 1 GM/100 ML BAG IV ONE (19:35)
[2021-03-15] MEDS ORDERED: KETOROLAC 30 MG/ML VIAL IV STA (19:35)
[2021-03-15] MEDS ORDERED: SODIUM CHLORIDE 0.9% 1000ML 1,000 ML IV SCH (19:45)
[2021-03-15 19:56] LABS: Basophils # (auto) 0.03 K/uL (0-0.2); Basophils % (auto) 0.3 %; Eosinophils # (auto) 0.05 K/uL (0-0.5); Eosinophils % (auto) 0.4 %; Hematocrit (blood only) 40.6 % (37-47); Hemoglobin 13.4 g/dL (12.0-16.0); Immature Granulocytes # (auto) 0.03 K/uL (0.00-0.02); Immature Granulocytes % (auto) 0.3 %; Lymphocytes # (auto) 1.22 K/uL (1.2-3.4); Lymphocytes % (auto) 10.9 %; Mean Corpuscular Volume 90.8 fL (80-100); Mean Platelet Volume 9.2 fL (7.4-10.4); Monocytes # (auto) 0.65 K/uL (0.11-0.59); Monocytes % (auto) 5.8 %; Neutrophils # (auto) 9.23 K/uL (1.4-6.5); Neutrophils % (auto) 82.3 %; Platelet Count 378 K/uL (130-400); RDW Coefficient of Variation 13.7 % (11.5-14.5); RDW Standard Deviation 45.1 fL (36.4-46.3); Red Blood Count 4.47 M/uL (4.2-5.4); White Blood Count 11.21 K/uL (4.8-10.8)
[2021-03-15 20:14] LABS: BUN Creatinine Ratio 12.6 (10-20); Blood Urea Nitrogen 12 mg/dl (7-18); Calcium 8.8 mg/dl (8.5-10.1); Carbon Dioxide 28 mmol/L (21-32); Chloride 107 mmol/L (98-107); Est GFR (African American) 82.5 ml/min; Est GFR (Non-African American) 71.1 ml/min; Glucose 100 mg/dl (70-99); Sodium 139 mmol/L (136-145)
[2021-03-15] MEDS ORDERED: PROCHLORPERAZINE 5 MG/ML 2 ML VIAL IV STA (20:44)
[2021-03-15] MEDS ORDERED: dexAMETHasone**PF** 10 MG/ML VIAL IV ONE (20:44)
[2021-03-15] MEDS ORDERED: ATIVAN 1MG HOMEPACK PO ONE (21:53)
[2021-03-15] MEDS ORDERED: ONDANSETRON HOME PACK 4MG OD TAB PO ONE (21:53)
[2021-03-15] MEDS ORDERED: SODIUM CHLORIDE 0.9% 1000ML 1,000 ML IV ONE (22:30)
--- NOTE | 2021-03-15 23:15 | History & Physical Report ---
Date of Service March 15, 2021 Assessment & Plan (1) Hypoxemia: Mrs. Bynum is a 40 yo woman with a PMHx of anxiety who presented to the [facility] ED after suffering a panic attack in response to an exceptional emotional stressor. While in the ED she was tachycardiac and she desatted inte rmittently to the mid 80s on room air. - suspect hypoxemia is due to obstructive sleep apnea and/or obesity hypoventilation syndrome (and this is a chronic, rather than acute problem). Supplemental O2 as needed. Recommend patient have a repeat outpatient sleep study, as her disorder may have progressed in the past 5 years (ie from mild to moderate). We discussed how many improvements have been made in recent years to design of CPAP masks - geared to making them more comfortable for patients to wear. (2) Tachycardia: - sinus tach on EKG - suspect secondary to panic attack. WBC is mildly elevated, but suspicion for infection is low at this time. 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 (3) Panic attack as reaction to stress: - due to father's in car accident earlier today - patient received Ativan in the ED - Hydroxyzine prn - continue home anxiety medications (4) FLASH (obstructive sleep apnea): - suspect co-existent obesity hypoventilation syndrome - recommend repeat sleep study as outpatient as above - suspect this is etiology of o2 desaturation (5) Anxiety: - continue home wellbutrin, escitalopram and Remeron (6) Leukocytosis: - WBC mildly elevated to 11.2 - suspicion for infection is low at this time - patient did receive IV steroids in ED, likely reactive - repeat CBC in am (7) GERD (gastroesophageal reflux disease): - continue home omeprazole Dvt ppx: Lovenox SQ Diet: Hearth Healthy Dispo: Med/Surg w tele (due to tachycardia) Code: Full History of Present Illness Primary Care Provider: ASA Floyd Mrs. Bynum is a 40 yo woman with a PMHx of anxiety and obstructive sleep apnea who presented to the ED for management of a panic attack. Earlier today, her father was killed in a car accident (victim was brought to [facility] as a trauma case). Her family traveled to [facility] as soon as they heard about the accident. Mrs. Bynum developed a racing heart and uncontrollable anxiety symptoms. She checked herself in to the ED for further evaluation. No recent prolonged periods of immobility. No recent surgeries. No personal or family history of blood clots. No preceding unilateral LE pain, erythema, swelling. She denies any current chest pain or SOB (she was mildly SOB during her panic attack earlier). She did have a sleep study 5 years ago and was told she had mild sleep apnea. She briefly trialed a CPAP - she did not like the way it fit. Her PCP told her she could discontinue it if it were that uncomfortable, as her disorder was mild anyway. She has no history of underlying lung disease. Social Hx: She is a non-smoker. Occasional Etoh use. Lives with her and son. In the ED she was tachycardic to 134 bpm. She was afebrile; while waiting in the ED bed, she feel asleep and her O2 saturation reduced to 86% on room air. She w as placed on supplemental O2 via NC. Her WBC returned mildly elevated at 11.2. Her CBC was otherwise unremarkable. Her BMP was normal. EKG showed sinus tach. CXR was of poor quality - rotated and penetration issues. She was given Tylenol 650mg, Dexamethasone 10mg, Toradol 10mg, Lorazepam 1mg, Magnesium 1gram, zofran 4mg, prochlorperazine and started on IVF. Allergies Allergy/AdvReac Type Severity Reaction Status Date / Time No Known Allergies Allergy Unknown Verified 03/15/21 19:10 Home Medications Medication Instructions Recorded Confirmed Type escitalopram oxalate 20 mg PO QPM 01/13/19 03/15/21 History sumatriptan succinate 100 mg PO UD PRN 01/13/19 03/15/21 History valacyclovir 2 tabs PO Q12H PRN 01/13/19 03/15/21 History metoclopramide HCl 10 mg PO Q6H PRN 08/29/20 03/15/21 History bupropion HCl 300 mg 24 hr tablet, 300 mg PO QPM 11/08/20 03/15/21 History extended release cyclobenzaprine 10 mg tablet 10 mg PO DAILY PRN #90 tab 11/08/20 03/15/21 Rx omeprazole 20 mg capsule,delayed 20 mg PO QPM #90 cap 11/08/20 03/15/21 Rx release pramipexole 0.5 mg tablet 0.5 mg PO HS #90 tab 11/08/20 03/15/21 Rx mirtazapine 30 mg tablet 30 mg PO DAILY #30 tab 12/08/20 03/15/21 Rx methylprednisolone See Rx Instructions .ROUTE 03/15/21 Rx .COMPLEX #21 ea ondansetron HCl [Zofran] 4 mg PO TID PRN 5 Days #15 tab 03/15/21 Rx Past Med/Surg History Medical History Anxiety Depression GERD (gastroesophageal reflux disease) Well controlled and stable Hypothyroidism No meds- pt was on levothyroxine 25mcg but was off for several months and when TSH rechecked- was WNL. Migraines Usually headache daily FLASH (obstructive sleep apnea) "Mild" - tried CPAP to see if headaches would be relieved- no change- no longer uses CPAP Osteoarthritis Restless leg syndrome Surgical History History of arthroscopy of left knee History of carpal tunnel release of both wrists History of sinus surgery x 2 S/P spinal surgery 10/17/20 Dr. Se An- #1 lumbar decompression with bilateral medial facetectomies and foraminotomies L2-L3. #2 posterior spinal fusion L2-L3. #3 placed posterior instrumentation L2-L3. #4 interbody fusion L2-L3. #5 placement peek cage 13 x 26 mm at L2-L3. #6 placement of locally harvested morselized autograft in the posterior gutters. #7 placement infuse collagen sponge, master graft in the posterior gutters and osteopenic body space. Family History Father Diabetes Other No family history of adverse response to anesthesia Social History Smoking Status: Never smoker Second Hand Exposure: Yes (dad smokes); Hx Alcohol Use: Yes Alcohol type: beer Hx Substance Use: No Preferred Language: Sinhala Communication Ability: Effective Supervisor General Required: No Beliefs That Will Affect Care: None marital status: Current Living Situation: Spouse and Family Feels Safe at Home: Yes Assistive Devices: None Review of Systems Psychiatric: + anxiety Physical Exam Constitutional: WD/WN, vitals as above + morbidly obese and cooperative + audible snoring Eyes: + anicteric sclerae ENMT: external ear and nose normal, oropharynx normal Neck: normal visual inspection, trachea midline and + thick neck Respiratory: normal respiratory effort, lungs clear to auscultation no cough Cardiovascular: Rate/Rhythm: regular rhythm and + tachycardic Heart Sounds: normal S1 and normal S2; no murmur Extremities: no pedal edema Gastrointestinal (Abdomen): normal bowel sounds, soft, nontender, no hep atosplenomegaly Skin: no rashes, warm and dry Neurologic: moves all extremities Psychiatric: A+Ox3, euthymic affect Results & Data Results & Data ([facility]) Vital Signs (Past 12 Hours) Vital Signs Temp Pulse Resp BP Pulse Ox 03/15/21 22:50 86 L 03/15/21 22:30 115 H 18 154/88 H 93 03/15/21 22:00 117 H 18 128/91 89 L 03/15/21 21:30 113 H 17 160/102 H 93 03/15/21 21:00 116 H 23 140/109 H 95 03/15/21 20:00 123 H 14 96 03/15/21 19:55 89 L 03/15/21 19:42 112 H 19 136/84 93 03/15/21 18:19 97 03/15/21 18:02 36.4 C L 134 H 28 H 138/97 98 Supervising Physician Co-Signing Physician Notes Attending addendum: I have physically seen this patient, have supervised the medical residents activities, and agree with the H&P unless as otherwise noted. Assessment and Plan: Intermittent hypoxemia- Obesity hypoventilation syndrome Nasal cannula oxygen, titrate to keep pulse ox 92 to 94% Patient reportedly did have a sleep study done 5 years ago, which classify her FLASH is mild, most likely has progressed at this point She is unable to get testing again, or unable to tolerate mask as before, would likely qualify for needs cannula oxygen to use at bedtime Remaining orders and notations as noted Resident Activity Tracking Resident Involvement: Resident Care Provided Care Provided: Adult [facility]
[2021-03-16] MEDS ORDERED: ONDANSETRON INJ 2 MG/ML 2 ML VIAL IV PRN (01:27)
[2021-03-16] MEDS ORDERED: ACETAMINOPHEN 325 MG TAB PO PRN (01:27)
[2021-03-16 07:10] LABS: Basophils # (auto) 0.01 K/uL (0-0.2); Basophils % (auto) 0.1 %; Hematocrit (blood only) 41.5 % (37-47); Hemoglobin 13.3 g/dL (12.0-16.0); Immature Granulocytes # (auto) 0.02 K/uL (0.00-0.02); Immature Granulocytes % (auto) 0.2 %; Lymphocytes # (auto) 0.89 K/uL (1.2-3.4); Lymphocytes % (auto) 9.7 %; Mean Corpuscular Hemoglobin 29.3 pg (25-34); Mean Corpuscular Volume 91.4 fL (80-100); Mean Platelet Volume 9.6 fL (7.4-10.4); Monocytes # (auto) 0.11 K/uL (0.11-0.59); Monocytes % (auto) 1.2 %; Neutrophils # (auto) 8.17 K/uL (1.4-6.5); Neutrophils % (auto) 88.8 %; Platelet Count 396 K/uL (130-400); RDW Coefficient of Variation 13.7 % (11.5-14.5); Red Blood Count 4.54 M/uL (4.2-5.4)
--- NOTE | 2021-03-16 07:27 | XRay Report ---
XR chest 1V portable HISTORY: Anxiety. COMPARISON: Chest 08/29/2020. FINDINGS: Diffuse prominence of interstitial markings is likely technical. Otherwise, lungs are clear . The heart is normal in size. No pleural effusions. No pneumothorax. There are low lung volumes. IMPRESSION: No acute process. ACT 112: Negative or not required by law. Electronically signed by: Sreedhar Gutierrez M.D. 03/16/2021 7:25 AM
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
--- NOTE | 2021-03-16 09:10 | XRay Report ---
XR chest 1V portable CLINICAL HISTORY: Hypoxia COMPARISON STUDY: 03/15/2021 FINDINGS: There is stable interstitial prominence, finding which may in part be technical given the p atient's large body habitus. There is no lobar consolidation. There are no significant pleural effusi ons.[ IMPRESSION: 1. Stable interstitial prominence, finding which may in part be technical. No evidence of focal pulmo nary consolidation ACT 112: Negative or not required by law. Electronically signed by: Isidro Damon M.D. 03/16/2021 9:08 AM
[2021-03-16] MEDS: hydrOXYzine HCl 25 MG TAB PO PRN (10:18)
[2021-03-16] MEDS ORDERED: LORazepam 1 MG TAB PO PRN (10:33)
[2021-03-16] MEDS ORDERED: PROCHLORPERAZINE 5 MG in SYRINGE 4 ML IV PRN (11:53)
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
[2021-03-16] MEDS ORDERED: PROCHLORPERAZINE 5 MG in SYRINGE 4 ML IV ONE (12:15)
--- NOTE | 2021-03-16 14:36 | Electrocardiogram Report ---
Test Reason : Blood Pressure : / mmHG Vent. Rate : 123 BPM Atrial Rate : 123 BPM P-R Int : 140 ms QRS Dur : 080 ms QT Int : 320 ms P-R-T Axes : 042 040 053 degrees QTc Int : 458 ms Sinus tachycardia Otherwise normal ECG When compared with ECG of 29-AUG-2020 11:24, HR has increased Confirmed by Dion Waters ([id number]) on 03/16/2021 2:35:58 PM Referred By: REFERRED SELF Confirmed By:Dion Waters
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
[2021-03-16] MEDS ORDERED: SUMAtriptan succinate 100 MG TAB PO ONE (18:10)
[2021-03-16] MEDS ORDERED: CYCLOBENZAPRINE HCL 10 MG TAB PO PRN (18:11)
[2021-03-16] MEDS ORDERED: KETOROLAC TROMETHAMINE 15 MG/ML VIAL IV PRN (18:27)
[2021-03-16] MEDS ORDERED: KETOROLAC 30 MG/ML VIAL IV ONE (18:27)
[2021-03-16] MEDS ORDERED: KETOROLAC 30 MG/ML VIAL ONE (18:36)
[2021-03-16] MEDS ORDERED: MIRTAZAPINE TAB 15 MG TAB PO SCH (21:00)
[2021-03-16] MEDS ORDERED: ESCITALOPRAM OXALATE 20 MG TAB PO SCH (21:00)
[2021-03-16] MEDS ORDERED: buPROPion XL 300 MG TABCR PO SCH (21:00)
[2021-03-16] MEDS ORDERED: PANTOprazole 40 MG TAB PO SCH (21:00)
[2021-03-16] MEDS ORDERED: PRAMIPEXOLE DIHYDROCHLO 0.5 MG TAB PO SCH (21:00)
--- NOTE | 2021-03-17 06:05 | Billing Data ---
Date of Service March 17, 2021 Coding Level of Care Code 29360 OBS Care - Level 3
--- NOTE | 2021-03-17 08:12 | Hospitalist Progress Note ---
Date of Service March 17, 2021 Assessment & Plan Admission and Anticipated Discharge Date Admission Date: March 15, 2021 Results & Data Results & Data ([facility]) Vital Signs (Past 12 Hours) Vital Signs Temp Pulse Pulse Pulse Resp BP Pulse Ox 03/17/21 02:41 36.5 C 90 16 124/77 92 03/16/21 23:44 94 H 03/16/21 23:00 93 H 03/16/21 22:51 36.7 C 98 H 18 107/73 95 Pulse Ox 03/17/21 02:41 03/16/21 23:44 91 03/16/21 23:00 03/16/21 22:51 PG Care Time/CCT Total # of Minutes Spent Total Time Spent with Patient: Total time spent is greater than 50% in coordination of care (as documented) at patient's floor/unit and/or counseling patient: Coding
--- NOTE | 2021-03-17 09:28 | Discharge Summary ---
Date of Service March 17, 2021 Admission HPI Per Admitting Provider Mrs. Bynum is a 40 yo woman with a PMHx of anxiety and obstructive sleep apnea who presented to the ED for management of a panic attack. Earlier today, her father was killed in a car accident (victim was brought to [facility] as a trauma case). Her family traveled to [facility] as soon as they heard about the accident. Mrs. Bynum developed a racing heart and uncontrollable anxiety symptoms. She checked herself in to the ED for further evaluation. No recent prolonged periods of immobility. No recent surgeries. No personal or family history of blood clots. No preceding unilateral LE pain, erythema, swelling. She denies any current chest pain or SOB (she was mildly SOB during her panic attack earlier). She did have a sleep study 5 years ago and was told she had mild sleep apnea. She briefly trialed a CPAP - she did not like the way it fit. Her PCP told her she could discontinue it if it were that uncomfortable, as her disorder was mild anyway. She has no history of underlying lung disease. Social Hx: She is a non-smoker. Occasional Etoh use. Lives with her and son. In the ED she was tachycardic to 134 bpm. She was afebrile; while waiting in the ED bed, she feel asleep and her O2 saturation reduced to 86% on room air. She was placed on supplemental O2 via NC. Her WBC returned mildly elevated at 11.2. Her CBC was otherwise unremarkable. Her BMP was normal. EKG showed sinus tach. CXR was of poor quality - rotated and penetration issues. She was given Tylenol 650mg, Dexamethasone 10mg, Toradol 10mg, Lorazepam 1mg, Magnesium 1gram, zofran 4mg, prochlorperazine and started on IVF. Admission Exam Per Admitting Provider Constitutional: WD/WN, vitals as above + morbidly obese and cooperative + audible snoring Eyes: + anicteric sclerae ENMT: external ear and nose normal, oropharynx normal Neck: normal visual inspection, trachea midline and + thick neck Respiratory: normal respiratory effort, lungs clear to auscultation no cough Cardiovascular: Rate/Rhythm: regular rhythm and + tachycardic Heart Sounds: normal S1 and normal S2; no murmur Extremities: no pedal edema Gastrointestinal (Abdomen): normal bowel sounds, soft, nontender, no hepatosplenomegaly Skin: no rashes, warm and dry Neurologic: moves all extremities Psychiatric: A+Ox3, euthymic affect Principal Diagnosis Panic Attack, Anxiety, Obstructive Sleep Apnea Discharge Exam Constitutional WD/WN, vitals as above + morbidly obese, cooperative and comfortable Eyes + anicteric sclerae ENMT external ear and nose normal, oropharynx normal Mallampati Class: III Neck normal visual inspection, trachea midline and + thick neck Respiratory normal respiratory effort, lungs clear to auscultation no cough Cardiovascular Rate/Rhythm: regular rhythm and + tachycardic Heart Sounds: normal S1 and normal S2; no murmur Extremities: no pedal edema Gastrointestinal (Abdomen) normal bowel sounds, soft, nontender, no hepatosplenomegaly Skin no rashes, warm and dry Neurologic moves all extremities Psychiatric Orientation: alert and oriented x 3 Apperance: appropriately groomed Eye Contact: + fair eye contact Motor Behavior: no abnormal motor movements Speech: normal rate/rhythm/volume of speech Thought Process: linear/logical thought process Thought Content: reality based without delusions Suicidal Thoughts: denies suicidal thoughts Homicidal Thoughts: denies homicidal thoughts Hallucinations: no auditory hallucinations and no visual hallucinations Cognition: recent memory grossly intact Estimated Intelligence: average estimated intelligence Insight: good insight Judgement: good judgement Discharge Data Allergies Allergy/AdvReac Type Severity Reaction Status Date / Time No Known Allergies Allergy Unknown Verified 03/15/21 19:10 Consultations 03/15/21 23:29 ED Decision to Admit Stat 03/16/21 08:56 Consult Psychiatry Routine Hospital Course (1) Hypoxemia: Mrs. Bynum is a 40 yo woman with a PMHx of anxiety who presented to the [facility] ED after suffering a panic attack in response to an exceptional emotional stressor. While in the ED she was tachycardiac and she desat'd intermittently to the mid 86-88% on room air while sleeping (hx FLASH) - suspect hypoxemia is due to obstructive sleep apnea and/or obesity hypoventilation syndrome (and this is a chronic, rather than acute problem) Did not have any desaturations while awake CXR without acute process/pneumonia. Low suspicion for PE Possibly exacerbated by panic attack Will obtain overnight sleep study --> she was unable to tolerate CPAP mask ~5 yrs ago but would be willing to try nasal cannula and can discuss alternative masks as outpatient with formal repeat sleep study Overnight sleep study with 139 events, total >1 hour with drop to 55% for ~5 minutes and discussed importance for repeat study as outpatient and management with CPAP (she has hers at home still but has not used and will need study repeated) Set up with overnight O2 to wear via NC and she can further look at different masks for compliance as an outpatient (2) Tachycardia: - sinus tach on EKG - suspect secondary to panic attack. WBC is mildly elevated, but suspicion for infection is low at this time. WBC normal on repeat Wells score of 1.5, PE unlikely No arrhythmias on monitor ECHO with normal LV function and size Likely related to situation/extreme duress with father passing suddenly in car accident and brought to [facility] day of admission when he passed Symptom control and consider propranolol in follow up for HR and anxiety if needed after discussion with PCP (3) Panic attack as reaction to stress: due to father's in car accident earlier day of admission, mom critical in [place] ICU Ativan in ER x 1 Hydroxyzine prn --> continued at discharge Psych consulted -- recs for short term ativan --> sent with 0.5mg to utilize 0.5 and up to 1mg as needed as opposed to only 1mg tablets given her FLASH and concerns for hypoxia Given resources/info for grief counseling and encouraged utilization (4) FLASH (obstructive sleep apnea): - suspected co-existent obesity hypoventilation syndrome - recommend repeat sleep study as outpatient as above --> overnight sleep study as above and set up with O2 via NC and need repeat study outpt and trial of newer masks for compliance (5) Anxiety: - continued home wellbutrin, escitalopram and Remeron Ativan as above for short term but discussed hydroxyzine may be better tattoo designer option Will also check TSH given long standing anxiety, overweight, etc -- wnl (6) Leukocytosis: - WBC mildly elevated to 11.2 on admission but returned to normal. Did get IV steroids in ED (7) GERD (gastroesophageal reflux disease): - continued PPI Dvt ppx: Lovenox SQ DIshcarged home Total Time Total Time Spent Total Time Spent (In Minutes): 60 Discharge Plan Discharge Items Patient Disposition: Home - Self-Care Reason For Visit: HYPOXEMIA, TACHYCARDIA Discharge Diagnosis: Panic Attack, FLASH Goals: You have been hospitalized for an acute medical problem. During your stay at [facility], we have made an effort to correct the problem that brought you to the hospital while keeping you as comfortable as possible. Medications were used to bring your condition under control and your discharge instructions will include directions for any medications you should take after leaving the hospital. Please make sure you see your Primary Care Provider as part of your follow up plan. Activity: Resume your previous activity Non-emergency contact: Primary Care Provider and Psychiatrist Call non-emergency contact if: you have any medication questions and your symptoms worsen Follow-up/Referrals: Meka Malin CRNP [Primary Care Provider] - 03/21/21 3:30 pm (Your ap pointment is with Dr Luna. If you have any questions or need to change this appointment. please call [phone].) Diet: Heart Healthy Addtl Attending Provider Instructions: You have been hospitalized for low oxygen saturations at rest as well as panic attacks secondary to extreme emotional stress given recent events. GIven you history of sleep apnea, an overnight pulse oximetry was completed and you did drop your saturations into the 50s and total events over 100. You already have CPAP at home but that is old and will need repeat formal sleep s tudy in order to determine your new needs. You may be able to restart on your old settings for now but should discuss this with your primary care provider in follow up when you get new sleep study. As discussed, there are lots of new masks and devices that may help this be easier for compliance in the future. As discussed, this can decrease tattoo designer side effects like high blood pressure, kidney disease, etc, when treated. You were also started on ativan (lorazepam) to utilize as needed for panic attack. Given your sleep apnea, it is very important to use this cautiously and avoid use when unnecessary. You can also utilize hydroxyzine 20mg up to 2-4 times a day as needed. This can also help with sleep and would be a better ideal retirement. But note, this can cause some dry mouth as well. For the ativan, you are being sent with 0.5mg tablets and so that use during the day is not so sedating, but you can take up to 2 tablets if needed. Please utilize resources provided for you by the psychiatric team for grief and counseling services as these would be particularly helpful given your recent loss. Please follow up with your primary care provider in the next week to monitor your progress. It has been a pleasure getting to know you and take part in your care while you have been in the hospital. Take care. Pending Studies at Discharge: No Stand-Alone Forms: My [facility] Medications and DC Order Prescriptions: New ondansetron HCl [Zofran] 4 mg tablet 4 mg PO TID PRN (Reason: nausea and vomiting) 5 Days Qty: 15 RF: 0 hydroxyzine HCl 25 mg Tablet 25 mg PO Q12 PRN (Reason: anxiety) Qty: 30 RF: 0 lorazepam 1 mg Tablet 0.5 mg PO Q4 PRN (Reason: anxiety or panic attack) Qty: 14 RF: 0 Continued mirtazapine 30 mg tablet 30 mg PO DAILY Qty: 30 RF: 5 bupropion HCl 300 mg tablet extended release 24 hr 300 mg PO QPM RF: 0 omeprazole 20 mg capsule,delayed release(DR/EC) 20 mg PO QPM Qty: 90 RF: 3 pramipexole 0.5 mg tablet 0.5 mg PO HS Qty: 90 RF: 3 cyclobenzaprine 10 mg tablet 10 mg PO DAILY PRN (Reason: Muscle Spasm) Qty: 90 RF: 1 metoclopramide HCl 10 mg Tablet 10 mg PO Q6H PRN (Reason: Nausea) RF: 0 valacyclovir 1 gram tablet 2 tabs PO Q12H PRN (Reason: Cold Sores) RF: 0 sumatriptan succinate 100 mg Tablet 100 mg PO UD PRN (Reason: Migraine Headache) RF: 0 escitalopram oxalate 20 mg tablet 20 mg PO QPM RF: 0 Discharge Orders: Discharge Order (Routine); Ordered 03/17/21 Ordered By: Celine Gaffney Admission Data Admit Date/Time: 03/15/21 23:10 Attending Provider: Luke Alejo Admit Provider: Kathleen Santos Primary Care Provider: Meka Malin Other Providers: George Jimenez ; Meka Taveras ; Dr Eliot ; Imani Layne ; Enrrique Farley Other Interventions: Discharge Summary Assessment (RN) Last Done: 03/17/21 11:13 Coding Level of Care Code 19357 OBS Care - Discharge Diagnoses Hypoxemia R09.02 Tachycardia R00.0 Panic attack as reaction to stress F41.0; F43.0 FLASH (obstructive sleep apnea) G47.33 Anxiety F41.9 Leukocytosis D72.829 GERD (gastroesophageal reflux disease) K21.9
[2021-03-17] MEDS: hydrOXYzine HCl 25 MG TAB PO PRN (11:11)
[2021-03-17 12:36] VITALS: BP 118/80; PULSE 113; TEMP 98.1; O2SAT 92
--- NOTE | 2021-03-17 15:56 | XCELERA ---
[id number]
== END 2021-03-17 12:52 | disposition home or self-care (01) ==
LOC: 2N 17:59 → ED 17:59 → SUATTDRO 23:10 → 2N 03-16 00:57